=== PATIENT | female | born 1960 | race Caucasian/White ===

== ENCOUNTER 2019-12-11 16:31 | Emergency (ER) | payer MEDICAID ==
[~2019-12-11] VITALS: Ht 162.6 cm; Wt 111.1 kg
[2019-12-11 16:46] VITALS: Ht 162.6 cm; Wt 111.1 kg
[2019-12-11 17:30] LABS: BASOPHIL % 0.6 % (0-2); PLATELET COUNT 270 x10^3mcL (130-400); RED CELL DISTRIBUTION WIDTH 13.6 % (11.5-14.5)
[2019-12-11 17:32] LABS: CALCIUM 8.9 mg/dL (8.5-10.1); CARBON DIOXIDE 25.2 mmol/L (21-32); CHLORIDE SERUM 103 mmol/L (98-107); CREATININE SERUM 0.8 mg/dL (0.6-1.0); GFR1 > 60 mL/min; GLUCOSE SERUM 89 mg/dL (74-106); POTASSIUM SERUM 3.7 mmol/L (3.5-5.1); SODIUM SERUM 140 mmol/L (136-145)
[2019-12-11 17:37] LABS: ALKALINE PHOSPHATASE 93 U/L (46-116); ALT/SGPT 36 U/L (14-59); AST/SGOT 38 U/L (15-37); BILIRUBIN TOTAL 0.6 mg/dL (0.20-1.00)
[2019-12-11 17:38] LABS: CHOLESTEROL 111 mg/dL (<200); TOTAL PROTEIN, SERUM 8.8 g/dL (6.4-8.2)
[2019-12-11 18:04] LABS: UA SPECIFIC GRAVITY <=1.005 (1.005-1.035); microscopic required? YES; urine erythrocyte 1+ (NEGATIVE)
[2019-12-11 18:13] LABS: AMPHETAMINE QUAL UR NONE DETECTED (See below)
[2019-12-11 18:56] VITALS: BP 145/74
== END 2019-12-11 18:56 | disposition home or self-care (01) ==
LOC: ED 16:31
PROVIDERS: Specialist
DX: F41.9 Anxiety disorder, unspecified (principal); R51 Headache; I10 Essential (primary) hypertension
CPT/HCPCS: 36600; G0480; Q0092